=== PATIENT | male | born 1970 | race African-American/Black ===

== ENCOUNTER 2021-02-13 12:56 | Inpatient (IN) | payer OTHER ==
[~2021-02-13] VITALS: Ht 182.9 cm; Wt 119.3 kg
--- NOTE | ~2021-02-13 | EMS ---
[place] [id number] EMS Patient Care Report Name: OLAYINKA BROWNING Room #: 358-P [facility] IN M.R.#: [id number] Admission: 02/13/21 Attend Phys: Satish Gallagher MD Discharge: 02/15/21 Date of : 74 Report #: [id number] THIS REPORT FOR: //name// Report Transmitted: 02/17/2021 15:12 EMS Care Summary [place], [place]/[facility] Incident [id number] @ 02/13/2021 12:19 [address]ident [address] [place] [address] Patient OLAYINKA BROWNING Male, 50 Years 1970 Patient Address [address] [place] [address] Patient History Hypertension (HTN),Stroke/CVA,Coronary Artery Bypass Graft (CABG), Patient Allergies No known allergies, Patient Medications Carvedilol, ASA, Xarelto, Lisinopril, Chief Complaint SEIZURES Disposition Transported No Lights/[place] Dispatch Reason Convulsions/Seizure Transported To [facility] Narrative M41 DISPATCHED WITH P41 TO SEIZURES. M41 AOS AND FOUND A MALE PT SITTING IN THE LIVING ROOM WITH FAMILY. THE FAMILY STATES THAT THE PT WAS SITTING IN THE CHAIR SLEEPING [place] [address] EMS Patient Care Report Name: OLAYINKA BROWNING Room #: 358-P DIS IN ..#: [id number] Admission: 02/13/21 Attend Phys: Satish Gallagher MD Discharge: 02/15/21 Date of : 74 Report #: [id number] SHIRT ON THEN BEGAN CONVULSING FOR ABOUT 3-4 MINUTES. THEY STATE THAT THEY WERE FULL BODY CONVULSIONS AND THAT HE HAS NO HX OF SEIZURES. PT DOES HAVE CARDIAC HX WELL DEFICTS IN HIS LEFT ARM AND SPEECH FROM A PAST STROKE. MEDS AND ALLERGIES OBTAINED. PT IS ALERT AND ANSWERING QUESTIONS BUT IS SLIGHTLY CONFUSED AND LETHARGIC. PT WAS VERY DIAPHORETIC WHICH RESOLVED AFTER A COUPLE MINUTES. PT DENIES ANY COMPLAINTS AT THIS TIME. PT MOVED TO A [place]GAMOVER AND ONTO THE COT. VITALS OBTAINED. BGA OBTAINED. 4 AND 12 LEAD EKG OBTAINED WHICH WERE UNREMARKABLE. IV ACCESS CONSIDERED BUT NO SITES WERE FOUND. M41 [address] STAPLES. EN ROUTE PT REMAINED STABLE. REPORT GIVEN TO LEONELA MEEHAN. SIGNATURES OBTAINED. TRANSFER OF CARE TOOK PLACE. I SIGNED FOR PT DUE TO AMS. M41 IN SERVICE. 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 Initial Vitals @12:37P: 81,CO: 0,SpO2: 99,CA Suspected: false @12:38P: 79,BP: 123/82,SpO2: 98, @12:36P: 80,R: 18,BP: 125/85,Pain: 0/10,GCS: 14,Glucose: 96,SpO2: 98,Revised Trauma: 12, @12:48P: 79,R: 18,BP: 124/80,Pain: 0/10,GCS: 14,SpO2: 96,Revised Trauma: 12, Assessments @12:26MENTAL:Person Oriented,Other,Confused,Place Oriented,SKIN:Diaphoresis,HEENT:Head/Face: No Abnormalities,Neck/Airway: No Abnormalities,LUNG SOUNDS:General: No Abnormalities,ABDOMEN:General: No Abnormalities,PELVIS//GI:No Abnormalities,EXTREMITIES:Capillary Refill: Right Upper: < 2 Sec,Left Arm: Other,Right Arm: No Abnormalities,Left Leg: No Abnormalities,Right Leg: No Abnormalities,PULSE:Radial: 2+ Normal,NEURO:Slurred Speech,Seizures, Impression Seizures Procedures @12:26 ALS Assessment Response: UnchangedSucceeded @12:36 3-Lead ECG Response: UnchangedSucceeded [address] [address] EMS Patient Care Report Name: NAMOLAYINKA TAZ Room #: 358-P [facility] IN M.R.#: [id number] Admission: 02/13/21 Attend Phys: Satish Gallagher MD Discharge: 02/15/21 Date of : 74 Report #: [id number] @12:37 12-Lead ECG Response: UnchangedSucceeded Timeline 12:18,Call Received 12:18,Dispatch Notified 12:19,Dispatched 12:20,En Route 12:24,On Scene 12:26,At Patient 12:26,ALS Assessment,Response: UnchangedSucceeded, 12:36,3-Lead ECG,Response: UnchangedSucceeded, 12:36,BP: 125/85 M,PULSE: 80,RR: 18 R,SPO2: 98 Ox,ETCO2: ,B,PAIN: 0,GCS: 14, 12:37,12-Lead ECG,Response: UnchangedSucceeded, 12:37,BP: / M,PULSE: 81,RR: R,SPO2: 99 Ox,ETCO2: ,BG: ,PAIN: ,GCS: , 12:37,Depart Scene 12:38,BP: 123/82 M,PULSE: 79,RR: R,SPO2: 98 Ox,ETCO2: ,BG: ,PAIN: ,GCS: , 12:48,BP: 124/80 M,PULSE: 79,RR: 18 R,SPO2: 96 Ox,ETCO2: ,BG: ,PAIN: 0,GCS: 14, 12:52,At Destination 13:01,Call Closed Disclaimer v1.1 Copyright 2020 [employer] This EMS Care Summary contains data elements from the applicable legal record (which may be displayed differently). It is designed to provide pertinent information for the following purposes: continuity of care, clinical quality, and state data reporting. The complete legal record is available to ED staff and administrators of the receiving hospital in [employer] Patient Tracker. All data is provided "as is."
[2021-02-13 12:57] VITALS: BP 117/77
[2021-02-13 13:23] LABS: EOSINOPHILS 1.5 % (0.0-3.0); HEMATOCRIT 44.3 % (42.0-52.0); HEMOGLOBIN 14.6 gm/dL (14.0-18.0); LYMPHOCYTES 37.5 % (24.0-44.0); MCH 31.2 pg (26.0-34.0); MCHC 32.9 g/dL (28.0-37.0); MCV 94.9 fL (80.0-100.0); MONOCYTES 10.9 % (1.0-8.0); PLATELET COUNT 319 thou/uL (150-400); POLYS 49.1 % (36.0-66.0); RBC 4.67 mil/uL (4.50-6.00); RDW 13.9 % (10.5-14.5)
[2021-02-13 13:42] LABS: CALCIUM 8.7 mg/dL (8.5-10.1); CREATININE 1.1 mg/dL (0.7-1.3); POTASSIUM 4.2 mmol/L (3.5-5.1)
[2021-02-13 13:52] LABS: ALBUMIN 3.8 g/dL (3.4-5.0); TOTAL BILIRUBIN 0.6 mg/dL (0.2-1.0); TOTAL PROTEIN 7.7 g/dL (6.4-8.2)
[2021-02-13 14:25] LABS: URINE BILIRUBIN NEGATIVE (Negative); URINE BLOOD 1+ (Negative); URINE CLARITY CLEAR; URINE COLOR YELLOW; URINE GLUCOSE-RANDOM* NEGATIVE (Negative); URINE KETONES NEGATIVE (Negative); URINE LEUKOCYTES-REFLEX NEGATIVE (Negative); URINE NITRITE-REFLEX NEGATIVE (Negative); URINE PROTEIN (DIPSTICK) 1+ (Negative); URINE SPECIFIC GRAVITY >= 1.030 (1.005-1.035); URINE UROBILINOGEN 0.2 E.U./dl (0.2-1.0)
[2021-02-13 14:50] LABS: BACTERIA-REFLEX None Seen /HPF (None Seen); CRYSTALS None Seen /LPF (None Seen); SQUAMOUS 0-3 Few /LPF (0-3); URINE RBC 1-2 Rare /HPF (NONE SEEN); URINE WBC-REFLEX None Seen /HPF (0-5)
[2021-02-13] MEDS ORDERED: XARELTO20 MG PO (15:03)
[2021-02-13] MEDS ORDERED: ROSUVASTATIN CA40 MG PO (15:04)
[2021-02-13] MEDS ORDERED: ASA81BEC PO (15:04)
[2021-02-13] MEDS ORDERED: CARVEDILOL6.25 M1 PO (15:04)
[2021-02-13] MEDS ORDERED: LISINOPRIL10 MG PO (15:04)
[2021-02-13] MEDS ORDERED: ESCITALOPRAM OX20 MG PO (15:04)
[2021-02-13 16:20] VITALS: BP 110/69
[2021-02-13 16:53] LABS: ALBUMIN 3.8 g/dL (3.4-5.0); TOTAL PROTEIN 7.3 g/dL (6.4-8.2)
[2021-02-13 16:56] VITALS: BP 119/77
[2021-02-13 20:45] VITALS: BP 108/62
[2021-02-14 00:13] VITALS: BP 121/85
[2021-02-14 04:10] VITALS: BP 111/71
--- NOTE | 2021-02-14 04:24 | NUR ---
pt awake off and on through the night. he has not slept well. stated that he usally takes melatonin. explained that he is on an anti-siezure medication and that he should expect to go home on the same medication but in pill form. pt verbalized understanding.
[2021-02-14 05:51] LABS: HEMATOCRIT 21.5 % (42.0-52.0); MCH 28.6 pg (26.0-34.0); RBC 2.48 mil/uL (4.50-6.00); WBC 12.8 thou/uL (4.0-11.0)
[2021-02-14 05:58] LABS: HEMOGLOBIN 7.1 gm/dL (14.0-18.0)
[2021-02-14 06:04] LABS: MCV 86.6 fL (80.0-100.0)
[2021-02-14 06:14] LABS: CALCIUM 7.6 mg/dL (8.5-10.1); MAGNESIUM 1.9 mg/dL (1.8-2.4); POTASSIUM 3.6 mmol/L (3.5-5.1)
[2021-02-14 07:11] VITALS: BP 114/78
[2021-02-14 07:48] LABS: HEMATOCRIT 41.8 % (42.0-52.0)
[2021-02-14 08:26] LABS: HEMOGLOBIN 13.6 gm/dL (14.0-18.0)
--- NOTE | 2021-02-14 10:00 | EKG ---
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
--- NOTE | 2021-02-14 11:20 | NUR ---
OT EVALUATED PT. THIS DATE. DETERMINED PT. HAS 1 FINGER WIDTH SHOULDER SUBLUXATION ON L UE. OT SPOKE WITH DR. CAMPBELL, WHO ORDERS A GIVMOHR SLING FOR PT. OT CALLED AND SPOKE WITH CLAUDE, WHO STATES THEY PLACED AN OVERNIGHT ORDER FOR THE GIVMOHR SLING, WHICH THEY ANTICIPATE WILL ARRIVE WEDNESDAY. IF PT. DISCHARGES BEFORE SLING ARRIVES, CASE MGMT IS TO NOTIFY THE PATIENT'S HOME HEALTH AGENCY WHO CAN POWERHOUSE LABORER THE SLING AND DELIVER TO THE PATIENT. OR THE PATIENT CAN HAVE A FAMILY MEMBER GIVE HIM A RIDE TO THE [facility] TO RECEIVE THE GIVMOHR SLING. OT WILL TAPE SHOULDER THIS AFTERNOON TO FACILITATE IMPROVED COMFORT AND FUNCTIONAL USE OF L UE.
[2021-02-14 12:14] VITALS: BP 125/87
[2021-02-14 15:03] VITALS: BP 99/60
--- NOTE | 2021-02-14 19:42 | NUR ---
RN ASSUMED PT'S CARE AT 0700-1900PM, PT IS A&0X4, PT'S VS ARE STABLE, PT HAS STARTED SEIZURE MEDICATIONS, PT DOES NOT HAVE S/S OF SEIZURE AT DAY SHIFT.
[2021-02-14 20:30] VITALS: BP 102/60
[2021-02-15 04:16] LABS: HEMATOCRIT 43.8 % (42.0-52.0); HEMOGLOBIN 14.5 gm/dL (14.0-18.0); MCH 31.2 pg (26.0-34.0); MCHC 33.1 g/dL (28.0-37.0); RBC 4.65 mil/uL (4.50-6.00); RDW 13.8 % (10.5-14.5); WBC 5.1 thou/uL (4.0-11.0)
[2021-02-15 04:27] LABS: MCV 94.2 fL (80.0-100.0)
[2021-02-15 04:32] LABS: CALCIUM 8.6 mg/dL (8.5-10.1); MAGNESIUM 2.1 mg/dL (1.8-2.4); POTASSIUM 4.2 mmol/L (3.5-5.1)
[2021-02-15 04:33] LABS: CREATININE 0.8 mg/dL (0.7-1.3)
[2021-02-15 04:37] VITALS: BP 116/65
--- NOTE | 2021-02-15 06:34 | NUR ---
Patient making progress towards outcome goals. High fall risk, fall precautions in place. Vital signs and rhythm stable. No seizure activity noted. Seizure precautions in place.
[2021-02-15 08:00] VITALS: BP 109/67
[2021-02-15 08:47] LABS: CHOLESTEROL 158 mg/dL (<200); HDL CHOLESTEROL 51 mg/dL (>40); LDL CHOLESTEROL 99 mg/dL (<100); TC:HDL 3.1 Ratio (Not establshd); TRIGLYCERIDE 43 mg/dL (<150); VLDL 9 mg/dL (<40)
[2021-02-15] MEDS ORDERED: KEPPRA1000 MG PO (11:45)
[2021-02-15 12:01] VITALS: BP 112/74
[2021-02-15 13:26] VITALS: BP 112/74
--- NOTE | 2021-02-15 19:39 | NUR ---
RN ASSUMED PT'S CARE AT 0700-1500PM, PT IS A&OX4, PT'S VS ARE STABLE, PT 'S SEIZURE ACTIVITIES HAVE CONTROLED, RN RECEIVED ORDER TO DC PT TO HOME, PT AND PT'S FAMILY UNDERSTAND DC TEACHING WELL , PT'S FAMILY HELMET COVERER PT TO HOME AT 1500PM.
== END 2021-02-15 13:00 | disposition home or self-care (01) | DRG 101 ==
LOC: ER 12:56 → EROBS 16:05 → 3W 16:40
PROVIDERS: Nurse Practitioner; Nurse Practitioner Family; ADMIT Internal Medicine; ATTEND Internal Medicine
DX: G40.909 Epilepsy, unspecified, not intractable, without status epilepticus (principal); F32.A Depression, unspecified; G93.89 Other specified disorders of brain; I25.10 Atherosclerotic heart disease of native coronary artery without angina pectoris; I10 Essential (primary) hypertension; Z20.822 Contact with and (suspected) exposure to COVID-19; I69.334 Monoplegia of upper limb following cerebral infarction affecting left non-dominant side; Z79.899 Other long term (current) drug therapy; Z86.711 Personal history of pulmonary embolism; Z79.01 Long term (current) use of anticoagulants; Z79.82 Long term (current) use of aspirin
CPT/HCPCS: 10080